=== PATIENT | female | born 1955 | race Caucasian/White ===

== ENCOUNTER 2016-03-13 13:37 | Outpatient (CLI) | payer OTHER ==
--- NOTE | 2016-03-13 15:22 | DIAGNOSTIC IMAGING REPORT ---
PROCEDURE: XR SHOULDER 2 OR MORE VW-RIGHT INDICATION: PAIN TECHNIQUE: Three views. COMPARISON: None. FINDINGS: There is calcific tendonitis. There is internal and external rotation without fracture or dislocation. IMPRESSION: 1. Calcific tendonitis
== END 2016-03-13 23:00 ==
LOC: XR SRH 13:37
DX: M75.31 Calcific tendinitis of right shoulder (principal)

== ENCOUNTER 2016-04-25 07:51 | Outpatient (CLI) | payer OTHER ==
--- NOTE | 2016-04-25 12:05 | DIAGNOSTIC IMAGING REPORT ---
PROCEDURE: MG BILATERAL SCREENING W/CAD INDICATION: Screening. New baseline. TECHNIQUE: Bilateral CC and MLO digital views. COMPARISON: None. FINDINGS: Computer-aided detection applied. Mildly dense. No change. IMPRESSION: 1. Negative mammogram. RESULT CODE: 1- Negative. A. A negative report should not delay biopsy if a dominant or clinically suspicious mass is present. 10-15% of cancers are not identified by x-ray. B. A negative report may reinforce clinical impression. C. Adenosis and dense breasts may obscure an underlying neoplasm. D. False positive reports average 6-10%. E.. A yearly screening mammogram is recommended. A reminder letter will be scheduled.
== END 2016-04-25 23:00 ==
LOC: MAM SRH 07:51
DX: Z12.31 Encounter for screening mammogram for malignant neoplasm of breast (principal)

== ENCOUNTER 2016-05-04 08:47 | Outpatient (CLI) | payer OTHER ==
--- NOTE | 2016-05-04 10:47 | DIAGNOSTIC IMAGING REPORT ---
PROCEDURE: US COMPLETE PELVIC W/TRANSVAG INDICATION: POST MENOPAUSAL BLEEDING TECHNIQUE: Transabdominal and endovaginal becker scale and color Doppler sonographic images of the female pelvis were obtained. COMPARISON: None. FINDINGS: TRANSABDOMINAL SCANS: Vertically oriented uterus measures approximately 8.3 cm in length. Nabothian cyst seen in the cervix. Normal contour and echotexture. Normal adnexa without suspicious mass. The visible portion of the urinary bladder is normal. No significant free pelvic fluid. TRANSVAGINAL SCANS: The uterus is slightly anteverted in position and has a fairly homogeneous myometrial echotexture. It measures 5.8 by 4.4 x 4.1 cm The endometrium is 10 mm in thickness. The endometrial margin is mildly irregular and a few tiny cystic changes are seen. No increased vascularity. The right ovary measures 2.1 x 0.8 x 1.9 cm and has a normal follicular echotexture. There is minimal but detectable vascularity. The left ovary was not visible. No suspicious left adnexal masses. No free pelvic fluid. IMPRESSION: 1. Mildly thickened, irregular and heterogeneous endometrium without suspicious vascularity, however thickening may represent endometrial hyperplasia or neoplastic change. Endometrial sampling is recommended. 2. Nonvisualization of the left ovary.
== END 2016-05-04 23:00 ==
LOC: US SRH 08:47
DX: N95.0 Postmenopausal bleeding (principal); R93.8 Abnormal findings on diagnostic imaging of other specified body structures

== ENCOUNTER 2016-05-30 10:19 | Outpatient (CLI) | payer OTHER | END 2016-05-30 23:00 | LOC: LAB SRH 10:19 | DX: R93.8 Abnormal findings on diagnostic imaging of other specified body structures (principal) | CPT/HCPCS: 90001; 90047; 90074; 90155; 90364; 91004; 92863; 95059 ==

== ENCOUNTER 2016-06-17 11:24 | Emergency (ER) | payer OTHER ==
--- NOTE | 2016-06-17 14:19 | ED ORDER SUMMARY ---
..... Patient: AMBERLY DURANT OrderSheet [facility] VisitID: [id number] [address] [place] [address] 61y, F Registration Date/Time: 06/17/2016 ORDER SHEET Weight: 81.6 kg (estimated) Allergies: BLEACH, Compazine, Penicillins, Perfumes, Phenergan, Vistaril GENERAL ORDERS: Stone Processing Machine Operator (Continuous) (11:55 06/17/2016 RMarsden R.N. per protocol) (11:56 RMarsden R.N.) Pulse oximeter (11:55 06/17/2016 RMarsden R.N. per protocol) (11:56 RMarsden R.N.) EKG - ER Stat (11:55 06/17/2016 RMarsden R.N. per protocol) (11:56 RMarsden R.N.) Vitals (11:55 06/17/2016 RMarsden R.N. per protocol) (11:56 RMarsden R.N.) Cardiac Panel Stat (12:12 06/17/2016 EKoroleva P.A.-C) (12:13 RMarsden R.N.) Chest 2V Urgent (12:47 06/17/2016 EKoroleva P.A.-C) (Ack 12:49 OHernandez) (13:27 RMarsden R.N.) Vitals - Orthostatic (13:46 06/17/2016 EKoroleva P.A.-C) (14:07 TBergley) MEDICATION ORDERS: IV FLUIDS: IV Saline Lock (11:47 06/17/2016 DDean R.N. per protocol) (11:48 DDean R.N.) IV Saline Lock (11:55 06/17/2016 RMarsden R.N. per protocol) (Cancelled: Duplicate Order11:56 RMarsden R.N.) Reglan IV 10 mg (NOW) (12:39 06/17/2016 EKoroleva P.A.-C) (Ack 12:40 JDeElena R.N.) Toradol IV 30 mg (NOW) (12:39 06/17/2016 EKoroleva P.A.-C) (Ack 12:40 JDeElena R.N.) (13:21 RMarsden R.N.) Valium IV 1 mg (HIGH ALERT MEDICATION, NOW) (13:10 06/17/2016 Jerry Holden) (Ack 13:11 RMarsden R.N.) (13:24 RMarsden R.N.) ORDER SHEET NOTES: [Electronically signed by Aminta Avila P.A.-C (15:06 06/17/2016)] [Electronically signed by Yamila Rodarte R.N. (15:42 06/17/2016)] [Electronically locked/signed by Yamila Rodarte R.N. (15:42 06/17/2016)]
--- NOTE | 2016-06-17 14:19 | ED NURSING NOTES ---
Clinical Report - Nurses [facility] [address] [place] [address] 06/17/2016 11:23 Patient: AMBERLY DURANT TRIAGE Triage time 11:27. Acuity: LEVEL 3. Chief Complaint: MIGRAINE HEADACHE and WEAKNESS and DIZZINESS (chest pain). 11:45 06/17/16. Alert. No acute distress. SEPSIS SCREEN: Sepsis Screen. Negative (no infection suspected/documented). JOAN COMA SCORE: Joan Coma Scale: 15- eyes open spontaneously (4); best verbal response- oriented x 4 (5); best motor response- obeys commands (6). --11:45 Yamila Rodarte R.N. 11:29 06/17/16. BP: 183/92. HR: 97. RR: 18. O2 saturation: 95%. Temp: 98.4 F. Pain level now: 05/15. --11:45 Yamila Rodarte R.N. Weight: 81.6 kg estimated. Height/Length: 65 inches Estimated. BMI: 30. --15:42 Yamila Rodarte R.N. Medications Singulair Oral. --11:43 Yamila Rodarte R.N. Fluticasone Propionate Nasal. --11:43 Yamila Rodarte R.N. Allergy Medication Oral. --11:44 Yamila Rodarte R.N. Allergies BLEACH. Definite Moderate(Anaphylaxis) Compazine. Definite Moderate(Anaphylaxis, confusion) Penicillins. Definite Moderate(Anaphylaxis) Perfumes. Definite Moderate(diarrhea, vomiting) Phenergan.(anxiety) Vistaril. --11:44 Yamila Rodarte R.N. History Historian: patient. Accompanied by daughter. Primary physician (Dr Fernandez). This started patient states "I have been having chest pain for quite a while". Patient reports having a headache for the "last couple weeks". PAST MEDICAL HX: Immunizations: up-to-date. Last normal menstrual period- Patient states she has been bleeding randomly, despite being post-menopausal. She states she is seeing a transmission supervisor for this. The patient is post-menopausal. Denies current . ( Patient states her asthma has been out of control lately, and she has been using her inhaler/nebulizer often. she states her chest pain is worse when she uses an inhaler often.). SOCIAL HX: Never smoker. No alcohol use or drug use. FALL RISK ASSESSMENT: Fall risk assessment completed. No fall risk identified. NUTRITIONAL RISK ASSESSMENT: The nutritional risk assessment revealed no deficiencies. FUNCTIONAL ASSESSMENT: Functional assessment: no impairments noted. LEARNING NEEDS ASSESSMENT: The learning needs assessment revealed no barriers. SKIN INTEGRITY ASSESSMENT: Skin integrity risk assessment completed. No skin integrity risk identified. --11:45 Yamila Rodarte R.N. PROBLEMS: Fall. Sprain. Pancreatitis. Gastroenteritis. URI. Bronchospasm. Anxiety Reaction. Hypertension. Bronchitis. Ovarian Cyst. Asthma. Immunizations. Contusion. Otitis Externa. LNMP - Last Normal Menstrual Period. --11:30 Yamila Rodarte R.N. ADDITIONAL SURGERIES: Cholecystectomy. Sinus Surgery. --11:45 Yamila Rodarte R.N. Interventions ID band on patient. To treatment room. --11:45 Yamila Rodarte R.N. PHYSICAL ASSESSMENT 11:50 06/17/16. Ambulatory to room. GENERAL / NEURO / PSYCH: Alert. Oriented X 4. Appears in no acute distress. Speech within normal limits. HEENT: No facial asymmetry noted. Pupils equal, round and reactive to light. RESPIRATORY: Respirations not labored. Breath sounds within normal limits. CVS: Capillary refill less than 2 seconds. SKIN: Skin is warm and dry. --11:50 Yamila Rodarte R.N. NURSING PROGRESS NOTES 11:43 06/17/2016 Site #1 started via IV in the left hand with an 22g angiocath, with aseptic technique. Saline lock flushed with 10 mL saline. --11:48 Kirsten Terry R.N. 11:50 06/17/16. Patient gowned. Call light placed in reach. Side rails up x 2. Bed placed in lowest position. Brakes of bed on. Patient ready for evaluation- chart flagged and notification provided. --11:50 Yamila Rodarte R.N. Patient ID band checked for patient name and birthdate: patient confirmed. Blood samples drawn from the right antecubital space with butterfly by nurse per protocol ; labeled in presence of the patient: rainbow set. (by PATSY Delarosa). --12:14 Yamila Rodarte R.N. ( blood drawn at 11: 55). --12:14 Yamila Rodarte R.N. 12:31 06/17/16. BP: 151/83. HR: 81. RR: 11. O2 saturation: 94%. Pain level now: 08/14. --12:33 Yamila Rodarte R.N. 12:32 06/17/16. Lights dimmed. Patient informed about reason for wait and about plan of care. --12:33 Yamila Rodarte R.N. 13:20 06/17/2016 Reglan IV 10 mg (NOW) was refused by patient because of concern over the side effects. Yamila Rodarte --13:20 Yamila Rodarte R.N. 13:21 06/17/2016 Toradol IVP 30 mg given over 1 minute(s) via site #1. Allergies verified and confirmed 5 rights. IV patency established. IV site checked: no pain, redness, or swelling. IV flushed thoroughly pre- and post-medication administration. IVP given by RN. --13:21 Yamila Rodarte R.N. 13:24 06/17/2016 Valium (Diazepam) IVP 1 mg given over 1 minute(s) via site #1. Allergies verified, confirmed 5 rights and sedative warning given to the patient. IV patency established. IV site checked: no pain, redness, or swelling. IV flushed thoroughly pre- and post-medication administration. IVP given by RN. --13:24 Yamila Rodarte R.N. 14:08 06/17/16. ( Pt ambulated from room to BR, stated "slight dizziness"). --14:08 Jerrica Eason. DISPOSITION / DISCHARGE 14:30. Condition at departure: improved and stable. No learning barriers present. Discharge instructions provided and reviewed with the patient and family. Reviewed medication(s) (zofran, meclizine). Patient and family verbalized understanding. Written instructions provided in Armenian. The patient was discharged home and accompanied by family. She left the Emergency Department ambulatory and via private vehicle. Family member driving. --14:37 Kirsten Terry R.N. 14:34 06/17/16. BP: 130/68. HR: 69. RR: 16. O2 saturation: 96% on room air. Temp: deferred. Pain level now: 05/15. --14:37 Kirsten Terry R.N. Locked/Released at 06/17/2016 15:42 by Yamila Rodarte R.N.
--- NOTE | 2016-06-17 14:19 | ED ORDER SUMMARY ---
..... Patient: AMBERLY DURANT OrderSheet [facility] VisitID: [id number] [address] [place] [address] 61y, F Registration Date/Time: 06/17/2016 ORDER SHEET Weight: 81.6 kg (estimated) Allergies: BLEACH, Compazine, Penicillins, Perfumes, Phenergan, Vistaril GENERAL ORDERS: Shredding Machine Tender (Continuous) (11:55 06/17/2016 RMarsden R.N. per protocol) (11:56 RMarsden R.N.) Pulse oximeter (11:55 06/17/2016 RMarsden R.N. per protocol) (11:56 RMarsden R.N.) EKG - ER Stat (11:55 06/17/2016 RMarsden R.N. per protocol) (11:56 RMarsden R.N.) Vitals (11:55 06/17/2016 RMarsden R.N. per protocol) (11:56 RMarsden R.N.) Cardiac Panel Stat (12:12 06/17/2016 EKoroleva P.A.-C) (12:13 RMarsden R.N.) Chest 2V Urgent (12:47 06/17/2016 EKoroleva P.A.-C) (Ack 12:49 OHernandez) (13:27 RMarsden R.N.) Vitals - Orthostatic (13:46 06/17/2016 EKoroleva P.A.-C) (14:07 TBergley) MEDICATION ORDERS: IV FLUIDS: IV Saline Lock (11:47 06/17/2016 DDean R.N. per protocol) (11:48 DDean R.N.) IV Saline Lock (11:55 06/17/2016 RMarsden R.N. per protocol) (Cancelled: Duplicate Order11:56 RMarsden R.N.) Reglan IV 10 mg (NOW) (12:39 06/17/2016 EKoroleva P.A.-C) (Ack 12:40 JDeElena R.N.) Toradol IV 30 mg (NOW) (12:39 06/17/2016 EKoroleva P.A.-C) (Ack 12:40 JDeElena R.N.) (13:21 RMarsden R.N.) Valium IV 1 mg (HIGH ALERT MEDICATION, NOW) (13:10 06/17/2016 Jerry Holden) (Ack 13:11 RMarsden R.N.) (13:24 RMarsden R.N.) ORDER SHEET NOTES: [Electronically signed by Aminta Avila P.A.-C (15:06 06/17/2016)] [Electronically signed by Yamila Rodarte R.N. (15:42 06/17/2016)] [Electronically locked/signed by Yamila Rodarte R.N. (15:42 06/17/2016)]
--- NOTE | 2016-06-17 14:19 | ED CLINICAL REPORT ---
Clinical Report - Physicians/Mid Levels [facility] [address] [place] [place] [address] 06/17/2016 11:23 Patient: AMBERLY DURANT Time Seen: 12:03 Jun 17 2016. Arrived- By private vehicle. Historian- patient. HISTORY OF PRESENT ILLNESS Chief Complaint: dizzy/ headache. This started just prior to arrival and is still present. (Patient reports headache since this morning with vertigo sensation of room spinning around her, worsens with movement. Patient with history of similar. He reports globalized headache at the temporal, and bandlike in nature. Denies any vomiting. Patient has had nausea. patient denies any injury.). REVIEW OF SYSTEMS No fever, sinus drainage, vomiting, diarrhea or chills. All systems otherwise negative, except as recorded above. ADDITIONAL NOTES The nursing notes have been reviewed. PHYSICAL EXAM Vital Signs: 06/17/2016 11:29 BP: 183/92. HR: 97. RR: 18. O2 saturation: 95%. Temp: 98.4 F. Pain level now: 4/10. Appearance: Alert. Eyes: Eyes normal inspection. ENT: Ears normal. Nose normal. Neck: Normal inspection. No carotid bruit or lymphadenopathy. CVS: Normal heart rate and rhythm. Heart sounds normal. Respiratory: No respiratory distress. Breath sounds normal. Chest nontender. No decreased air movement. Abdomen: No visible injury. Soft. Bowel sounds normal. No mass. No rebound tenderness. Back: Normal inspection. Skin: Skin warm. Normal skin color. Neuro: Oriented X 3. No motor deficit. No weakness. No sensory deficit. LABS, X-RAYS, AND EKG EKG: EKG time: (1149). No acute process. No acute ischemia. Rate: 83. Normal P waves. Normal ALFONSO. Normal QRS complex. Normal axis. Normal ST and T waves. The study has been interpreted contemporaneously. The study has been independently viewed by me. I agree with and confirm the computer reading of the EKG. Chest X-ray: (IMPRESSION: 1. Minor right basilar scarring Electronically Final signed by:Roberth Bah MD 06/17/2016 2:31:32 PM). Laboratory Tests: CBC w Diff: (SETH: 06/17/2016 11:50) ( MsgRcvd 06/17/2016 12:37) Final results Test Result Flag Units (Reference) WHITE BLOOD COUNT 8.0 K/uL (4.5-11.5) RED BLOOD COUNT 4.91 M/uL (4.00-5.20) HEMOGLOBIN 15.2 gm/dL (12.0-16.0) HEMATOCRIT 45.6 % (36.0-46.0) MEAN CELL VOLUME 93 fL (80-100) MEAN CORPUSCULAR HGB 31 pg (26-34) MEAN CORPUSCULAR HGB CONC 33 g/dL (31-37) RED CELL DISTRIBUTION WIDTH 13.6 % (11.6-14.8) PLATELET COUNT 315 K/uL (150-400) NEUTROPHIL % 67.3 % (50-75) LYMPH % 25.2 % (25-40) MONO % 6.1 % (3-14) EOSINOPHIL % 1.1 % (0-4) BASOPHIL % 0.3 % (0-2) CHEM 13 PANEL: (SETH: 06/17/2016 11:50) ( MsgRcvd 06/17/2016 12:56) Final results Test Result Flag Units (Reference) GLUCOSE 105 mg/dL (70-110) BUN 12 mg/dL (7-18) CREATININE 0.7 mg/dL (0.6-1.3) Estimated GFR >60 mL/min Estimated GFR- >60 mL/min Note: Persistent reduction over 3 months in eGFR<60 mL/min/1.73 m2 defines CKD. Patients with eGFR values>=60 mL/min/1.73 m2 may also have CKD if evidence ofpersistent proteinuria. Additional information may be foundat www.kidney.org. SODIUM 143 mmol/L (136-145) POTASSIUM 4.1 mmol/L (3.5-5.1) CHLORIDE 103 mmol/L (98-107) CARBON DIOXIDE 29 mmol/L (21-32) CALCIUM 9.0 mg/dL (8.5-10.1) TOTAL PROTEIN 7.9 g/dL (6.4-8.2) ALBUMIN 3.8 g/dL (3.3-5.0) BILIRUBIN, TOTAL 0.2 mg/dL (0.0-1.0) ALKALINE PHOSPHATASE 74 U/L (46-116) AST (SGOT) 19 U/L (15-37) ALT (SGPT) 36 U/L (12-78) MAGNESIUM 2.0 mg/dL (1.8-2.4) CPK 68 U/L (24-260) TROPONIN I <0.05 ng/mL (0.00-1.5) TROPONIN REFERENCE RANGE:<0.1 NEGATIVE0.1-1.5 INDETERMINANT>1.5 POSITIVE . PROGRESS AND PROCEDURES Course of Care: Patient in the emergency department with improvement of symptoms, had vertigo worsened with movement. Receive medications in the emergency department, with improvement of her symptoms. Patient denies any shortness of breath or chest pain currently. Workup included CBC, cardiac enzymes, EKG is also chest x-ray is rather unremarkable. Patient very stable. Fall palpation. 06/17/2016 14:34 BP: 130/68. HR: 69. RR: 16. O2 saturation: 96%. Pain level now: 4/10. Patient is stable. Physical exam findings are improved. Symptoms better. Patient/family counseled. Differential Diagnosis: I considered cochlear disease, labyrinthitis, vestibular neuronitis, Meniere's disease, acoustic schwannoma, brainstem TIA, brainstem CVA, multiple sclerosis, drug-related cause of central vertigo, multiple sensory deficits and metaphorical dizziness such as depression, chronic fatigue, etc as a possible cause of dizziness in this patient. This is a partial list of diagnoses considered. Disposition: Discharged. CLINICAL IMPRESSION Acute dizziness INSTRUCTIONS Warnings: Further evaluation is necessary. SEDATIVE MEDICATION: You were given sedative medication during your visit. Do not drive or operate dangerous machinery. GENERAL WARNINGS: Return or contact your physician immediately if your condition worsens or changes unexpectedly, if not improving as expected, or if other problems arise. Prescription Medications: Zofran (orally disintegrating tablets) 4 mg: take 1 orally every 6 hours for 3 days as needed for nausea. Dispense ten (10). No refill. Substitution is permissible. Meclizine 25 mg: take 1 tablet orally every 6 hours for 5 days, as needed for dizziness. Dispense fifteen (15). No refill. Follow-up: Follow up with your doctor in four days as needed. (Electronically signed by Aminta Avila P.A.-C 06/17/2016 15:06)
--- NOTE | 2016-06-17 14:31 | DIAGNOSTIC IMAGING REPORT ---
PROCEDURE: XR CHEST 2 VIEW INDICATION: CHEST PAIN TECHNIQUE: PA and lateral view. COMPARISON: Chest x-ray 12/08/2014. FINDINGS: Minor right basilar scarring. Cardiovascular structures are normal. Moderate degenerative changes of the spine. Cholecystectomy. No significant interval change. IMPRESSION: 1. Minor right basilar scarring
--- NOTE | 2016-06-17 15:42 | ED DISCHARGE INSTRUCTIONS ---
Patient: AMBERLY DURANT General Instructions [facility] VisitID: [id number] [address] [place] [address] 61y, F Registration Date/Time: 06/17/2016 Acute dizziness INSTRUCTIONS Warnings: Further evaluation is necessary. SEDATIVE MEDICATION: You were given sedative medication during your visit. Do not drive or operate dangerous machinery. GENERAL WARNINGS: Return or contact your physician immediately if your condition worsens or changes unexpectedly, if not improving as expected, or if other problems arise. Prescription Medications: Zofran (orally disintegrating tablets) 4 mg: take 1 orally every 6 hours for 3 days as needed for nausea. Dispense ten (10). No refill. Substitution is permissible. Meclizine 25 mg: take 1 tablet orally every 6 hours for 5 days, as needed for dizziness. Dispense fifteen (15). No refill. Follow-up: Follow up with your doctor in four days as needed. ADDITIONAL INFORMATION Dizziness [Uncertain Cause] Dizziness is a common symptom sometimes described as "lightheadedness" or feeling like you are going to faint. If it lasts for only a few seconds and is related to changes in position (such as getting up after lying or sitting for a long time), it is usually not a sign of anything serious. Dizziness that lasts for minutes to hours, or comes on for no apparent reason, may be a sign of a more serious problem (such as dehydration, a medicine reaction, disease of the heart or brain). Today's exam did not show an exact cause for your dizzy spell . Sometimes additional tests are required before a cause can be found. Therefore, it is important to follow up with your doctor if your symptoms continue. Home Care: 1) If a dizzy spell occurs and lasts more than a few seconds, lie down until it passes. If you are lying down, then you cannot hurt yourself by falling if you do faint. 2) Do not drive or operate dangerous equipment until the dizzy spells have stopped for at least 48 hours. 3) If dizzy spells occur with sudden standing, this may be a sign of mild dehydration. Drink extra fluids over the next few days. 4) If you recently started a new medicine or if you had the dose of a current medicine increased (especially blood pressure medicine), talk with the prescribing doctor about your symptoms. Dose adjustments may be needed. Follow Up with your doctor for further evaluation within the next seven days, if your symptoms continue. Get Prompt Medical Attention if any of the following occur: -- Worsening of your symptoms -- Fainting, headache or seizure -- Repeated vomiting -- Feeling like you or the room is spinning -- Chest, arm, neck, back or jaw pain -- Palpitations (the sense that your heart is fluttering or beating fast or hard) -- Shortness of breath -- Blood in vomit or stool (black or red color) -- Weakness of an arm or leg or one side of the face -- Difficulty with speech or vision Vertigo [Unknown Cause] The "inner ear" is located behind the middle ear. It is part of the balance center of your body. Disease of the inner ear causes vertigo -- a false feeling of motion. It feels as if you or the room is spinning. A vertigo attack may cause sudden nausea, vomiting and heavy sweating. Severe vertigo causes a loss of balance and can cause you to fall. During vertigo, small head movements and changes in body position will often make the symptoms worse. The causes of vertigo include: Inflammation of the inner ear Disease of the nerves to the inner ear Movement of calcium particles in the inner ear Poor blood flow to the balance centers of the brain An episode of vertigo may last seconds, minutes or hours. Once you are over the first episode, it may never return. However, sometimes symptoms may recur off and on over several weeks or longer, depending on the cause. There may be ringing in the ears or hearing loss, which may be temporary or permanent. Home Care: If symptoms are severe, rest quietly in bed. Change positions very slowly. There is usually one position that will feel best, such as lying on one side or lying on your back with your head slightly raised on pillows. Do not drive or work with dangerous machinery for one week after symptoms go away, in case the symptoms suddenly return. Take medicine as prescribed to relieve your symptoms. Unless another medicine was prescribed for nausea, vomiting and vertigo, you may use [id number]-[id number] motion sickness pills, such as meclizine (Bonine, Bonamine, Antivert) or dimenhydrinate (Dramamine). Follow Up with your doctor or as directed by our staff. Tell the doctor if your ears keep ringing, or if your hearing does not return to normal. Get Prompt Medical Attention if any of the following occur: Vertigo gets worse and is not controlled by medicine prescribed Repeated vomiting not relieved by medicine prescribed Increased weakness or fainting Severe headache or unusually drowsy or confused Weakness of an arm or leg or one side of the face Difficulty with speech or vision Ondansetron Hydrochloride Oral tablet What is this medicine? ONDANSETRON (on ABHAY se sangita) is used to treat nausea and vomiting caused by chemotherapy. It is also used to prevent or treat nausea and vomiting after surgery. How should I use this medicine? Take this medicine by mouth with a glass of water. Follow the directions on your prescription label. Take your doses at regular intervals. Do not take your medicine more often than directed. Talk to your washer engineer helper regarding the use of this medicine in children. Special care may be needed. What side effects may I notice from receiving this medicine? Side effects that you should report to your doctor or health customer care coordinator as soon as possible: allergic reactions like skin rash, itching or hives, swelling of the face, lips or tongue breathing problems dizziness fast or irregular heartbeat feeling faint or lightheaded, falls fever and chills swelling of the hands or feet tightness in the chest Side effects that usually do not require medical attention (report to your doctor or health customer care coordinator if they continue or are bothersome): constipation or diarrhea headache What may interact with this medicine? Do not take this medicine with any of the following medications: -apomorphine -cisapride -dofetilide -dronedarone -pimozide -thioridazine -ziprasidone This medicine may also interact with the following medications: -carbamazepine -phenytoin -rifampicin -tramadol -other medicines that prolong the QT interval (cause an abnormal heart rhythm) What if I miss a dose? If you miss a dose, take it as soon as you can. If it is almost time for your next dose, take only that dose. Do not take double or extra doses. Where should I keep my medicine? Keep out of the reach of children. Store between 2 and 30 degrees C (36 and 86 degrees F). Throw away any unused medicine after the expiration date. What should I tell my health care provider before I take this medicine? They need to know if you have any of these conditions: heart disease history of irregular heartbeat liver disease low levels of magnesium or potassium in the blood an unusual or allergic reaction to ondansetron, granisetron, other medicines, foods, dyes, or preservatives or trying to get breast-feeding What should I watch for while using this medicine? Check with your doctor or health customer care coordinator right away if you have any sign of an allergic reaction. You have been given the following additional information: Dizziness, Unk Cause Vertigo, Unspecified Ondansetron Hydrochloride Oral tablet (Electronically signed by Aminta Avila P.A.-C 06/17/2016 15:06)
--- NOTE | 2016-06-17 15:42 | ED DISCHARGE INSTRUCTIONS ---
Patient: AMBERLY DURANT General Instructions [facility] VisitID: [id number] [address] [place] [address] 61y, F Registration Date/Time: 06/17/2016 Acute dizziness INSTRUCTIONS Warnings: Further evaluation is necessary. SEDATIVE MEDICATION: You were given sedative medication during your visit. Do not drive or operate dangerous machinery. GENERAL WARNINGS: Return or contact your physician immediately if your condition worsens or changes unexpectedly, if not improving as expected, or if other problems arise. Prescription Medications: Zofran (orally disintegrating tablets) 4 mg: take 1 orally every 6 hours for 3 days as needed for nausea. Dispense ten (10). No refill. Substitution is permissible. Meclizine 25 mg: take 1 tablet orally every 6 hours for 5 days, as needed for dizziness. Dispense fifteen (15). No refill. Follow-up: Follow up with your doctor in four days as needed. ADDITIONAL INFORMATION Dizziness [Uncertain Cause] Dizziness is a common symptom sometimes described as "lightheadedness" or feeling like you are going to faint. If it lasts for only a few seconds and is related to changes in position (such as getting up after lying or sitting for a long time), it is usually not a sign of anything serious. Dizziness that lasts for minutes to hours, or comes on for no apparent reason, may be a sign of a more serious problem (such as dehydration, a medicine reaction, disease of the heart or brain). Today's exam did not show an exact cause for your dizzy spell . Sometimes additional tests are required before a cause can be found. Therefore, it is important to follow up with your doctor if your symptoms continue. Home Care: 1) If a dizzy spell occurs and lasts more than a few seconds, lie down until it passes. If you are lying down, then you cannot hurt yourself by falling if you do faint. 2) Do not drive or operate dangerous equipment until the dizzy spells have stopped for at least 48 hours. 3) If dizzy spells occur with sudden standing, this may be a sign of mild dehydration. Drink extra fluids over the next few days. 4) If you recently started a new medicine or if you had the dose of a current medicine increased (especially blood pressure medicine), talk with the prescribing doctor about your symptoms. Dose adjustments may be needed. Follow Up with your doctor for further evaluation within the next seven days, if your symptoms continue. Get Prompt Medical Attention if any of the following occur: -- Worsening of your symptoms -- Fainting, headache or seizure -- Repeated vomiting -- Feeling like you or the room is spinning -- Chest, arm, neck, back or jaw pain -- Palpitations (the sense that your heart is fluttering or beating fast or hard) -- Shortness of breath -- Blood in vomit or stool (black or red color) -- Weakness of an arm or leg or one side of the face -- Difficulty with speech or vision Vertigo [Unknown Cause] The "inner ear" is located behind the middle ear. It is part of the balance center of your body. Disease of the inner ear causes vertigo -- a false feeling of motion. It feels as if you or the room is spinning. A vertigo attack may cause sudden nausea, vomiting and heavy sweating. Severe vertigo causes a loss of balance and can cause you to fall. During vertigo, small head movements and changes in body position will often make the symptoms worse. The causes of vertigo include: Inflammation of the inner ear Disease of the nerves to the inner ear Movement of calcium particles in the inner ear Poor blood flow to the balance centers of the brain An episode of vertigo may last seconds, minutes or hours. Once you are over the first episode, it may never return. However, sometimes symptoms may recur off and on over several weeks or longer, depending on the cause. There may be ringing in the ears or hearing loss, which may be temporary or permanent. Home Care: If symptoms are severe, rest quietly in bed. Change positions very slowly. There is usually one position that will feel best, such as lying on one side or lying on your back with your head slightly raised on pillows. Do not drive or work with dangerous machinery for one week after symptoms go away, in case the symptoms suddenly return. Take medicine as prescribed to relieve your symptoms. Unless another medicine was prescribed for nausea, vomiting and vertigo, you may use [id number]-[id number] motion sickness pills, such as meclizine (Bonine, Bonamine, Antivert) or dimenhydrinate (Dramamine). Follow Up with your doctor or as directed by our staff. Tell the doctor if your ears keep ringing, or if your hearing does not return to normal. Get Prompt Medical Attention if any of the following occur: Vertigo gets worse and is not controlled by medicine prescribed Repeated vomiting not relieved by medicine prescribed Increased weakness or fainting Severe headache or unusually drowsy or confused Weakness of an arm or leg or one side of the face Difficulty with speech or vision Ondansetron Hydrochloride Oral tablet What is this medicine? ONDANSETRON (on ABHAY se sangita) is used to treat nausea and vomiting caused by chemotherapy. It is also used to prevent or treat nausea and vomiting after surgery. How should I use this medicine? Take this medicine by mouth with a glass of water. Follow the directions on your prescription label. Take your doses at regular intervals. Do not take your medicine more often than directed. Talk to your mold stacker regarding the use of this medicine in children. Special care may be needed. What side effects may I notice from receiving this medicine? Side effects that you should report to your doctor or health adult live in caregiver as soon as possible: allergic reactions like skin rash, itching or hives, swelling of the face, lips or tongue breathing problems dizziness fast or irregular heartbeat feeling faint or lightheaded, falls fever and chills swelling of the hands or feet tightness in the chest Side effects that usually do not require medical attention (report to your doctor or health adult live in caregiver if they continue or are bothersome): constipation or diarrhea headache What may interact with this medicine? Do not take this medicine with any of the following medications: -apomorphine -cisapride -dofetilide -dronedarone -pimozide -thioridazine -ziprasidone This medicine may also interact with the following medications: -carbamazepine -phenytoin -rifampicin -tramadol -other medicines that prolong the QT interval (cause an abnormal heart rhythm) What if I miss a dose? If you miss a dose, take it as soon as you can. If it is almost time for your next dose, take only that dose. Do not take double or extra doses. Where should I keep my medicine? Keep out of the reach of children. Store between 2 and 30 degrees C (36 and 86 degrees F). Throw away any unused medicine after the expiration date. What should I tell my health care provider before I take this medicine? They need to know if you have any of these conditions: heart disease history of irregular heartbeat liver disease low levels of magnesium or potassium in the blood an unusual or allergic reaction to ondansetron, granisetron, other medicines, foods, dyes, or preservatives or trying to get breast-feeding What should I watch for while using this medicine? Check with your doctor or health adult live in caregiver right away if you have any sign of an allergic reaction. You have been given the following additional information: Dizziness, Unk Cause Vertigo, Unspecified Ondansetron Hydrochloride Oral tablet (Electronically signed by Aminta Avila P.A.-C 06/17/2016 15:06)
--- NOTE | 2016-06-17 15:43 | ED MED RECONCILIATION SUMMARY ---
Patient: AMBERLY DURANT Medication Reconciliation Report [facility] VisitID: [id number] [address] [place] [address] 61y, F Registration Date/Time: 06/17/2016 Weight: 81.6 kg Height/Length: 65 in. BMI: 30.0 ALLERGIES: BLEACH, Compazine, Penicillins, Perfumes, Phenergan, Vistaril The patient's Home Medications are listed below: THE FOLLOWING MEDICATIONS NEED TO BE RECONCILED: Allergy Medication Oral Fluticasone Propionate Nasal Singulair Oral The source(s) of the original Home Medication information: Not obtained. The following Medications were given to the patient in the Emergency Department: Toradol [IVP] IVP 30 mg, administered: 06/17/2016 1:21:00 PM Valium [IVP] IVP 1 mg, administered: 06/17/2016 1:24:00 PM The following Medications were prescribed to the patient: Zofran (orally disintegrating tablets) 4 mg: take 1 orally every 6 hours for 3 days as needed for nausea. Dispense ten (10). No refill. Substitution is permissible. -- Aminta Avila, P.A.-C Meclizine 25 mg: take 1 tablet orally every 6 hours for 5 days, as needed for dizziness. Dispense fifteen (15). No refill. -- Aminta Avila, P.A.-C
--- NOTE | 2016-06-17 15:43 | ED MED RECONCILIATION SUMMARY ---
Patient: AMBERLY DURANT Medication Reconciliation Report [facility] VisitID: [id number] [address] [place] [address] 61y, F Registration Date/Time: 06/17/2016 Weight: 81.6 kg Height/Length: 65 in. BMI: 30.0 ALLERGIES: BLEACH, Compazine, Penicillins, Perfumes, Phenergan, Vistaril The patient's Home Medications are listed below: THE FOLLOWING MEDICATIONS NEED TO BE RECONCILED: Allergy Medication Oral Fluticasone Propionate Nasal Singulair Oral The source(s) of the original Home Medication information: Not obtained. The following Medications were given to the patient in the Emergency Department: Toradol [IVP] IVP 30 mg, administered: 06/17/2016 1:21:00 PM Valium [IVP] IVP 1 mg, administered: 06/17/2016 1:24:00 PM The following Medications were prescribed to the patient: Zofran (orally disintegrating tablets) 4 mg: take 1 orally every 6 hours for 3 days as needed for nausea. Dispense ten (10). No refill. Substitution is permissible. -- Aminta Avila, P.A.-C Meclizine 25 mg: take 1 tablet orally every 6 hours for 5 days, as needed for dizziness. Dispense fifteen (15). No refill. -- Aminta Avila, P.A.-C
--- NOTE | 2016-06-17 15:43 | ED MAR SUMMARY ---
..... Medication Administration Record [facility] [address] [place] [address] Patient: AMBERLY DURANT Visit ID: [id number] 61y, F Weight: 81.6 kg Height/Length: 65 in BMI: 30 ALLERGIES: BLEACH, Compazine, Penicillins, Perfumes, Phenergan, Vistaril Given 13:21 06/17/2016 Yamila Rodarte RWilsonN. Medication Administered: TORADOL [IVP], Dose: 30 mg IVP over 1 minute(s), Site: #1 left hand. Medication Ordered: Toradol IV 30 mg (NOW). Given 13:24 06/17/2016 Yamila Rodarte, RWilsonN. Medication Administered: VALIUM [IVP] (DIAZEPAM), Dose: 1 mg IVP over 1 minute(s), Site: #1 left hand. Medication Ordered: Valium IV 1 mg (HIGH ALERT MEDICATION, NOW).
--- NOTE | 2016-06-17 15:43 | ED MAR SUMMARY ---
..... Medication Administration Record [facility] [address] [place] [address] Patient: AMBERLY DURANT Visit ID: [id number] 61y, F Weight: 81.6 kg Height/Length: 65 in BMI: 30 ALLERGIES: BLEACH, Compazine, Penicillins, Perfumes, Phenergan, Vistaril Given 13:21 06/17/2016 Yamila Rodarte RWilsonN. Medication Administered: TORADOL [IVP], Dose: 30 mg IVP over 1 minute(s), Site: #1 left hand. Medication Ordered: Toradol IV 30 mg (NOW). Given 13:24 06/17/2016 Yamila Rodarte, RWilsonN. Medication Administered: VALIUM [IVP] (DIAZEPAM), Dose: 1 mg IVP over 1 minute(s), Site: #1 left hand. Medication Ordered: Valium IV 1 mg (HIGH ALERT MEDICATION, NOW).
== END 2016-06-17 14:30 | disposition home or self-care (01) ==
LOC: ED SRH 11:24
DX: R42 Dizziness and giddiness (principal); R51 Headache
CPT/HCPCS: 90100; 90616; 92610; 92720; 95059